=== PATIENT | male | born 1965 | race African-American/Black ===

== ENCOUNTER 2017-06-02 08:28 | Emergency (ER) | payer SELFPAY ==
[~2017-06-02] VITALS: Ht 177.8 cm; Wt 83.9 kg
[~2017-06-02 08:28] MED LIST: ATEN50TA PO; GLIP5TAB10 PO; LEVE500T56 PO; LOVA40TA2 PO; METF-620 PO; SULF1TAB24 PO; TRIA1CAP3 PO
--- NOTE | 2017-06-02 09:47 | RAD ---
FOOT LEFT 3V History:Left foot pain for 2 days Comparison: None Findings:3 views left foot are submitted. There are small plantar and dorsal calcaneal enthesophytes. No acute fracture or dislocation is identified. Impression: 1.No acute abnormality is identified.
[2017-06-02 10:00] VITALS: BP 180/97
[2017-06-02] MEDS ORDERED: NAPR500T3 PO (10:10)
--- NOTE | 2017-06-02 10:10 | PHYS DOC ---
Past Medical History Past Medical History: Anxiety, Diabetes-Type II, Hypertension, Seizure Past Surgical History: No Surgical History Alcohol Use: None Drug Use: None Adult General Chief Complaint Chief Complaint: LOWER EXT PAIN HPI HPI Patient is a 51 year old male who presents with foot pain. Patient states he fell out of bed 3 months ago and has had foot pain ever since, worse over the past several days. Reports pain with ambulation. Denies fevers or chills, erythema/swelling/warmth. No other injuries. He complains of a superficial wound over his toe. History of hypertension, reports compliance with medication regimen, denies headache, vision changes, shortness of breath or chest pain, extremity numbness or weakness. Review of Systems Review of Systems Constitutional: Denies fever or chills HENT: Denies nasal congestion or sore throat Respiratory: Denies cough or shortness of breath Cardiovascular: Denies chest pain or edema GI: Denies abdominal pain, nausea, vomiting Musculoskeletal: Reports foot pain. Integument: Denies rash or skin lesions Neurologic: Denies headache, focal weakness or sensory changes Allergies Allergies Allergies Coded Allergies Type Severity Reaction Last Updated Verified No Known Drug Allergies 10/17/13 No Physical Exam Physical Exam Constitutional: Well developed, well nourished, no acute distress, non-toxic appearance. HENT: Normocephalic, atraumatic, bilateral external ears normal, oropharynx moist, nose normal. Eyes: conjunctiva normal, no discharge. Neck: supple, no stridor. Cardiovascular: no edema. Lungs & Thorax: no respiratory distress. Abdomen: nondistended. Skin: Warm, dry, no erythema, no rash. Extremities: Left foot very mild swelling over the first metatarsal, no erythema or warmth, mild tenderness over first metatarsal without focal tenderness to MTP joint, no ankle or knee tenderness, normal range of motion at the ankle, DP and PT 2+, sensation intact to toes Neurologic: Alert and oriented X 3 Current Patient Data Vital Signs Vital Signs Date Time Temp Pulse Resp B/P (MAP) Pulse Ox O2 Delivery O2 Flow Rate FiO2 06/02/17 10:00 180/97 (124) 06/02/17 08:28 98.4 70 24 98 Room Air 98.4 EKG EKG [] Radiology/Procedures Radiology/Procedures PROCEDURE: FOOT LEFT 3V FOOT LEFT 3V History:Left foot pain for 2 days Comparison: None Findings:3 views left foot are submitted. There are small plantar and dorsal calcaneal enthesophytes. No acute fracture or dislocation is identified. Impression: 1.No acute abnormality is identified. DICTATED and SIGNED BY: LYSSA GARCIA MD DATE: 06/02/17 0943 [] Course & Med Decision Making Course & Med Decision Making Pertinent Labs and Imaging studies reviewed. (See chart for details) The patient presents with foot pain. X-ray unremarkable for acute process. Recommend supportive care for sprain/strain. Possibly this could represent gout although appearance not classic at this time. Recommend rest, ice, elevation, naproxen. Follow-up with primary care physician if not improved in one week. Blood pressure was elevated here at time of presentation, patient asymptomatic, improved without any medical intervention. Blood pressure should be rechecked by physician at time of follow-up. Return to the emergency department for signs of septic joint or otherwise worsening condition. Discharged home in stable condition. [] Dragon Disclaimer Dragon Disclaimer This electronic medical record was generated, in whole or in part, using a voice recognition dictation system. Departure Departure Impression: Primary Impression: Foot sprain Disposition: HOME, SELF-CARE Condition: STABLE Referrals: JERICHO MAN MD (PCP) Patient Instructions: Foot Sprain, Gout, Natj-[id number] Additional Instructions: You were seen in the emergency department today for foot pain. The x-ray was normal. This looks like a sprain. Based on the location of your pain, it is possible that this could be gout. However your symptoms are not classic. Try to rest, ice, elevate. Use the prescribed medication. Follow-up with your primary care doctor in one week if not improving. Sure to take blood pressure medication as prescribed. Return to the emergency department for high fever, spreading redness, swelling, warmth, any otherwise worsening condition. Scripts Naproxen (NAPROXEN) 500 Mg Tablet 1 TAB PO BID, #30 TAB Prov: KALIE BRINK MD 06/02/17 KALIE BRINK MD Jun 02, 2017 10:10
== END 2017-06-02 10:21 | disposition home or self-care (01) ==
LOC: ER 08:28
DX: S93.602A Unspecified sprain of left foot, initial encounter (principal); E11.9 Type 2 diabetes mellitus without complications; I10 Essential (primary) hypertension; W06.XXXA Fall from bed, initial encounter; Y93.89 Activity, other specified; Y99.8 Other external cause status; Y92.89 Other specified places as the place of occurrence of the external cause
CPT/HCPCS: 73630; 99284